=== PATIENT | male | born 1945 | race Caucasian/White ===

== ENCOUNTER → 2016-05-15 | Outpatient (REF) ==
[~2016-05-15] MED LIST: ALDACTONE 25MG25 M1 PO; ALDACTONE25 MG PO; AMOXICILLIN 50500 MG PO; ASPIRIN 32325 MG/TAB PO; ASPIRIN 81M81 MG/TA2 PO; BUFFERED ASPIR325 M1 PO; CAPOTEN 25MG25 MG PO; CAPOTEN 50MG50 MG PO; CAPTOPRIL50 MG PO; CATAPRES 0.1MG0.1 MG PO; CLONIDINE0.1 MG PO; LOPRESSOR 550 MG/TAB PO; LOPRESSOR PO; LOPRESSOR100 MG PO; METOPROLOL SUC100 MG PO; NO HOME MEDICATIONS; TOPROL XL50 MG PO
[2016-05-15 11:25] LABS: THYROID STIMULATING HORMONE 2.52 uIU/mL (0.465-4.680)
[2016-05-15 11:57] LABS: PSA-TOTAL 2.47 ng/mL (0-4)
== END ==
LOC: ZLAB.WCH 10:11
PROVIDERS: Internal Medicine
DX: Z01.89 Encounter for other specified special examinations (principal)
CPT/HCPCS: G0103

== ENCOUNTER → 2017-11-14 | Outpatient (REF) ==
[2017-11-14 09:39] LABS: THYROID STIMULATING HORMONE 3.27 uIU/mL (0.465-4.680)
[2017-11-14 10:06] LABS: PSA-TOTAL 1.96 ng/mL (0-4)
== END ==
LOC: ZLAB.WCH 08:39
PROVIDERS: Internal Medicine
DX: Z01.89 Encounter for other specified special examinations (principal)
CPT/HCPCS: G0103